=== PATIENT | female | born 1965 ===

== ENCOUNTER 2019-05-03 14:52 | Emergency (ER) | payer MEDICAID ==
[~2019-05-03] VITALS: Ht 167.6 cm; Wt 79.0 kg
[2019-05-03 14:55] VITALS: BP 131/81
--- NOTE | 2019-05-03 15:21 | NUR ---
PT BROUGHT BACK FROM TRIAGE WITH CHIEF COMPLAINT OF LEFT KNEE PAIN. CMS INTACT
--- NOTE | 2019-05-03 16:27 | NUR ---
ULTRASOUND AT BEDSIDE
== END 2019-05-03 17:16 | disposition home or self-care (01) ==
LOC: ED 16:15
DX: S80.02XA Contusion of left knee, initial encounter (principal); X50.1XXA Overexertion from prolonged static or awkward postures, initial encounter; Y93.89 Activity, other specified; Y92.009 Unspecified place in unspecified non-institutional (private) residence as the place of occurrence of the external cause; Y99.8 Other external cause status
CPT/HCPCS: 99284